=== PATIENT | female | born 1950 | race Caucasian/White ===

== ENCOUNTER 2022-10-16 18:59 | Inpatient (IN) | payer OTHER ==
[~2022-10-16] VITALS: Ht 157.5 cm; Wt 84.0 kg
[2022-10-16 20:23] LABS: Basophils # (auto) 0 10 ^3/uL (0-0.2); Basophils % (auto) 0.5 % (0.0-2.0); Eosinophils # (auto) 0.2 10 ^3/uL (0-0.8); Eosinophils % (auto) 3.2 % (0.0-7.0); Hematocrit 37.3 % (36.0-46.0); Hemoglobin 12.2 g/dL (12.2-16.2); Lymphocytes # (auto) 1.6 10 ^3/uL (0.4-5.4); Lymphocytes % (auto) 25.2 % (10.0-50.0); Mean Corpuscular Hemoglobin 29.6 pg (28.0-32.0); Mean Corpuscular Hgb Conc. 32.8 g/dL (32.0-36.0); Mean Corpuscular Volume 90.2 fL (80.0-100.0); Monocytes # (auto) 0.3 10 ^3/uL (0-1.3); Monocytes % (auto) 5.4 % (0.0-12.0); Neutrophils # (auto) 4.2 10 ^3/uL (1.6-8.6); Neutrophils % (auto) 65.7 % (37.0-80.0); Red Blood Cells 4.14 10^6/uL (4.0-5.20); Red Cell Distribution Width 13.7 % (11.8-14.3); White Blood Cell 6.4 10^3/uL (4.4-10.8)
[2022-10-16 20:28] LABS: INR 0.95 (0.9-1.15); Partial Thromboplastin Time 27.1 sec (24.6-33.4)
[2022-10-16 20:47] LABS: Albumin 3.4 g/dL (3.4-5.0); BUN/Creatinine Ratio 21.9; Bilirubin, Total 0.4 mg/dL (0.2-1.0); Calcium 9.1 mg/dL (8.5-10.1); Potassium 3.5 mmol/L (3.5-5.1); Total Protein 6.9 g/dL (6.4-8.2)
[2022-10-17] MEDS ORDERED: MORPHINE SULFATE 4 MG/ML SYR/VIAL IV ONE (01:00)
[2022-10-17] MEDS ORDERED: ONDANSETRON HCL 4 MG/2 ML VIAL IM ONE (01:00)
[2022-10-17] MEDS ORDERED: ONDANSETRON HCL 4 MG/2 ML VIAL IV ONE (01:30)
[2022-10-17] MEDS ORDERED: D5W/SOD CHLO 0.9% 1,000 ML IV ONE (03:15)
[2022-10-17] MEDS ORDERED: ONDANSETRON HCL 4 MG/2 ML VIAL IV PRN ×3 (03:15→15:30)
[2022-10-17] MEDS ORDERED: BUPIVACAINE W/ EPINEPH 0.25% INJ 50ML MDV ONE ×3 (11:35→16:37)
[2022-10-17] MEDS ORDERED: PHENYLEPHRINE HCL 10 MG/ML VL IV ONE (13:04)
[2022-10-17] MEDS ORDERED: ceFAZolin 1GM/50ML 100 ML IV ONE (14:03)
[2022-10-17] MEDS ORDERED: fentaNYL CITRATE 100 MCG/2 ML VL ONE (14:12)
[2022-10-17] MEDS ORDERED: MORPHINE SULF PF 5 MG/10 ML VIAL ONE (14:12)
[2022-10-17] MEDS ORDERED: MIDAZOLAM HCL 2MG/2ML 2ml VIAL (1mg/ml) ONE (14:12)
[2022-10-17] MEDS ORDERED: DexAMETHasone SOD PHOS 10MG/1ML VIAL INJ ONE (15:13)
[2022-10-17] MEDS ORDERED: POLYETHYLENE GLYCOL 17 GM PWDR PO PRN (15:15)
[2022-10-17] MEDS ORDERED: HYDROmorphone HCL 2 MG TAB PO PRN (15:15)
[2022-10-17] MEDS ORDERED: SENNA 8.6 MG TAB PO PRN (15:15)
[2022-10-17] MEDS ORDERED: NALOXONE HCL 0.4 MG/ML VIAL IV PRN (15:30)
[2022-10-17] MEDS ORDERED: DexAMETHasone SOD PHOS 10MG/1ML VIAL INJ IV PRN (15:30)
[2022-10-17] MEDS ORDERED: HYDROmorphone HCL 2 MG/ML VL/or syr IV PRN (15:30)
[2022-10-17] MEDS ORDERED: LABETALOL HCL 5 MG/ML 4ML SYRINGE IV PRN (15:30)
[2022-10-17] MEDS ORDERED: MIDAZOLAM HCL 2MG/2ML 2ml VIAL (1mg/ml) IV PRN (15:30)
[2022-10-17] MEDS ORDERED: ePHEDrine SULFATE 50 MG/ML AMP IV PRN (15:30)
[2022-10-17] MEDS ORDERED: NALBUPHINE HCL 10 MG/1ml INJECTION SUBCUT ONE (15:30)
[2022-10-17] MEDS ORDERED: KETOROLAC TROMETH 30 MG/ML 1ML VIAL ONE (16:39)
[2022-10-17] MEDS ORDERED: VANCOMYCIN HCL 1000 MG VL ONE (16:41)
[2022-10-17] MEDS ORDERED: PROPOFOL 10 MG/ML 20 ML IV ONE (16:41)
[2022-10-17 19:21] VITALS: BP 136/66
[2022-10-17 19:48] LABS: Basophils # (auto) 0 10 ^3/uL (0-0.2); Basophils % (auto) 0.1 % (0.0-2.0); Eosinophils # (auto) 0 10 ^3/uL (0-0.8); Eosinophils % (auto) 0.1 % (0.0-7.0); Hematocrit 27.5 % (36.0-46.0); Hemoglobin 9.1 g/dL (12.2-16.2); Lymphocytes # (auto) 0.5 10 ^3/uL (0.4-5.4); Lymphocytes % (auto) 4.5 % (10.0-50.0); Mean Corpuscular Hemoglobin 30.3 pg (28.0-32.0); Mean Corpuscular Hgb Conc. 33.2 g/dL (32.0-36.0); Mean Corpuscular Volume 91.1 fL (80.0-100.0); Monocytes # (auto) 0.4 10 ^3/uL (0-1.3); Monocytes % (auto) 3.5 % (0.0-12.0); Neutrophils # (auto) 10.1 10 ^3/uL (1.6-8.6); Neutrophils % (auto) 91.8 % (37.0-80.0); Nucleated Red Blood Cells % 0.2 %; Red Blood Cells 3.01 10^6/uL (4.0-5.20); Red Cell Distribution Width 13.6 % (11.8-14.3)
[2022-10-17 20:21] VITALS: BP 113/59
[2022-10-17 21:21] VITALS: BP 117/65
[2022-10-17 22:00] VITALS: BP 117/65
[2022-10-17] MEDS: SENNA 8.6 MG TAB PO SCH (22:04)
[2022-10-17] MEDS: ACETAMINOPHEN 500 MG TAB PO SCH (22:04)
[2022-10-17 22:21] VITALS: BP 110/62
[2022-10-17] MEDS ORDERED: MONT-8 PO (23:10)
[2022-10-17] MEDS ORDERED: FLUT100I INH (23:10)
[2022-10-17] MEDS ORDERED: GABA300C10 PO (23:10)
[2022-10-17 23:21] VITALS: BP 114/60
[2022-10-17] MEDS: ceFAZolin 2 GM in D5W 5% 100 ML IV SCH (23:21)
[2022-10-18] VITALS (19 sets, daily range): BP systolic 89–148; BP diastolic 43–89
[2022-10-18] MEDS ORDERED: ceFAZolin 1GM/50ML 100 ML IV ONE (06:01)
[2022-10-18] MEDS: ceFAZolin 2 GM in D5W 5% 100 ML IV SCH (06:03)
[2022-10-18] MEDS: ACETAMINOPHEN 500 MG TAB PO SCH ×3 (06:11→22:00)
[2022-10-18 07:16] LABS: Basophils # (auto) 0 10 ^3/uL (0-0.2); Eosinophils # (auto) 0 10 ^3/uL (0-0.8); Lymphocytes # (auto) 0.9 10 ^3/uL (0.4-5.4); Monocytes # (auto) 0.5 10 ^3/uL (0-1.3); White Blood Cell 6.8 10^3/uL (4.4-10.8)
[2022-10-18 07:18] LABS: Basophils % (auto) 0.1 % (0.0-2.0); Eosinophils % (auto) 0.1 % (0.0-7.0); Hematocrit 22.8 % (36.0-46.0); Hemoglobin 7.7 g/dL (12.2-16.2); Lymphocytes % (auto) 13.2 % (10.0-50.0); Mean Corpuscular Hemoglobin 30.4 pg (28.0-32.0); Mean Corpuscular Hgb Conc. 33.6 g/dL (32.0-36.0); Mean Corpuscular Volume 90.4 fL (80.0-100.0); Monocytes % (auto) 7.2 % (0.0-12.0); Neutrophils # (auto) 5.4 10 ^3/uL (1.6-8.6); Neutrophils % (auto) 79.4 % (37.0-80.0); Red Blood Cells 2.52 10^6/uL (4.0-5.20); Red Cell Distribution Width 13.5 % (11.8-14.3)
[2022-10-18 07:19] LABS: Albumin 2.3 g/dL (3.4-5.0); Calcium 7.8 mg/dL (8.5-10.1)
[2022-10-18 07:27] LABS: BUN/Creatinine Ratio 20.8; Bilirubin, Total 1.2 mg/dL (0.2-1.0)
[2022-10-18] MEDS: ENOXAPARIN SOD 40 MG/0.4 ML SYRINGE SC SCH (10:09)
[2022-10-18] MEDS: CHOLECALCIFEROL (VITD3) 1,000UNIT=25mCg TAB PO SCH (10:10)
[2022-10-18] MEDS: POLYETHYLENE GLYCOL 17 GM PWDR PO SCH (10:11)
[2022-10-18] MEDS: HYDROmorphone HCL 2 MG/ML VL/or syr IV PRN ×2 (14:28→18:29)
[2022-10-18] MEDS: HYDROcodone-ACET 5/325MG TAB PO PRN (20:02)
[2022-10-18] MEDS: SENNA 8.6 MG TAB PO SCH (21:59)
[2022-10-18] MEDS: MORPHINE SULFATE INJ 2 MG/ml SYRG IV PRN (22:08)
[2022-10-19] MEDS: HYDROmorphone HCL 2 MG/ML VL/or syr IV PRN (01:28)
[2022-10-19 05:00] VITALS: BP 146/60
[2022-10-19 06:13] LABS: Basophils # (auto) 0 10 ^3/uL (0-0.2); Basophils % (auto) 0.3 % (0.0-2.0); Eosinophils # (auto) 0 10 ^3/uL (0-0.8); Eosinophils % (auto) 0.2 % (0.0-7.0); Lymphocytes # (auto) 0.4 10 ^3/uL (0.4-5.4); Monocytes # (auto) 0.2 10 ^3/uL (0-1.3); Monocytes % (auto) 6.7 % (0.0-12.0); Neutrophils # (auto) 2.6 10 ^3/uL (1.6-8.6); White Blood Cell 3.2 10^3/uL (4.4-10.8)
[2022-10-19 06:16] LABS: Hematocrit 21.1 % (36.0-46.0); Lymphocytes % (auto) 11.6 % (10.0-50.0); Mean Corpuscular Hemoglobin 30.1 pg (28.0-32.0); Mean Corpuscular Hgb Conc. 33.2 g/dL (32.0-36.0); Mean Corpuscular Volume 90.5 fL (80.0-100.0); Neutrophils % (auto) 81.2 % (37.0-80.0); Nucleated Red Blood Cells % 0.1 %; Red Blood Cells 2.33 10^6/uL (4.0-5.20); Red Cell Distribution Width 13.5 % (11.8-14.3)
[2022-10-19 06:29] LABS: Albumin 2.3 g/dL (3.4-5.0); Calcium 7.7 mg/dL (8.5-10.1); Potassium 3.6 mmol/L (3.5-5.1)
[2022-10-19 06:34] LABS: BUN/Creatinine Ratio 23.9; Bilirubin, Total 0.5 mg/dL (0.2-1.0); Total Protein 4.7 g/dL (6.4-8.2)
[2022-10-19] MEDS: ACETAMINOPHEN 500 MG TAB PO SCH ×3 (06:41→21:23)
[2022-10-19 09:00] VITALS: BP 145/65
[2022-10-19] MEDS: CHOLECALCIFEROL (VITD3) 1,000UNIT=25mCg TAB PO SCH (10:00)
[2022-10-19] MEDS: POLYETHYLENE GLYCOL 17 GM PWDR PO SCH (10:00)
[2022-10-19] MEDS: MORPHINE SULFATE INJ 2 MG/ml SYRG IV PRN (10:01)
[2022-10-19] MEDS: ENOXAPARIN SOD 40 MG/0.4 ML SYRINGE SC SCH (12:00)
[2022-10-19 13:00] VITALS: BP 124/57
[2022-10-19] MEDS: HYDROmorphone HCL 2 MG TAB PO PRN (13:33)
[2022-10-19] MEDS ORDERED: AZITHROMYCIN 250 MG TAB PO ONE (15:15)
[2022-10-19] MEDS ORDERED: AMOXICILLIN/CLAVUL 875 MG TAB PO ONE (15:15)
[2022-10-19] MEDS ORDERED: AMOXICILLIN TRIHYDRATE 250 MG CAP PO ONE (15:15)
[2022-10-19 16:41] VITALS: BP 128/55
[2022-10-19] MEDS: SENNA 8.6 MG TAB PO SCH (21:22)
[2022-10-19] MEDS: AMOXICILLIN/CLAVUL 875 MG TAB PO SCH (21:22)
[2022-10-19 22:00] VITALS: BP 140/60
[2022-10-19] MEDS ORDERED: AMOXICILLIN TRIHYDRATE 250 MG CAP PO SCH (22:00)
[2022-10-20] VITALS (9 sets, daily range): BP systolic 119–145; BP diastolic 57–70
[2022-10-20] MEDS: HYDROmorphone HCL 2 MG TAB PO PRN (02:53)
[2022-10-20] MEDS: ACETAMINOPHEN 500 MG TAB PO SCH ×3 (05:38→21:46)
[2022-10-20 06:42] LABS: Basophils # (auto) 0 10 ^3/uL (0-0.2); Eosinophils # (auto) 0.1 10 ^3/uL (0-0.8); Lymphocytes # (auto) 0.7 10 ^3/uL (0.4-5.4); Monocytes # (auto) 0.2 10 ^3/uL (0-1.3); Nucleated Red Blood Cells % 0.1 %; White Blood Cell 3.9 10^3/uL (4.4-10.8)
[2022-10-20 06:45] LABS: Basophils % (auto) 0.4 % (0.0-2.0); Eosinophils % (auto) 3.1 % (0.0-7.0); Hematocrit 19.3 % (36.0-46.0); Lymphocytes % (auto) 18.2 % (10.0-50.0); Mean Corpuscular Hemoglobin 30.3 pg (28.0-32.0); Mean Corpuscular Hgb Conc. 33.4 g/dL (32.0-36.0); Mean Corpuscular Volume 90.6 fL (80.0-100.0); Monocytes % (auto) 5.2 % (0.0-12.0); Neutrophils # (auto) 2.9 10 ^3/uL (1.6-8.6); Neutrophils % (auto) 73.1 % (37.0-80.0); Red Blood Cells 2.13 10^6/uL (4.0-5.20); Red Cell Distribution Width 13.7 % (11.8-14.3)
[2022-10-20 07:00] LABS: Hemoglobin 6.5 g/dL (12.2-16.2)
[2022-10-20 07:01] LABS: BUN/Creatinine Ratio 30.3; Calcium 7.9 mg/dL (8.5-10.1); Potassium 3.3 mmol/L (3.5-5.1)
[2022-10-20 07:03] LABS: Bilirubin, Total 0.4 mg/dL (0.2-1.0); Total Protein 4.9 g/dL (6.4-8.2)
[2022-10-20] MEDS: POLYETHYLENE GLYCOL 17 GM PWDR PO SCH (10:00)
[2022-10-20] MEDS: ENOXAPARIN SOD 40 MG/0.4 ML SYRINGE SC SCH (10:12)
[2022-10-20] MEDS: AZITHROMYCIN 250 MG TAB PO SCH (10:13)
[2022-10-20] MEDS: CHOLECALCIFEROL (VITD3) 1,000UNIT=25mCg TAB PO SCH (10:13)
[2022-10-20] MEDS: AMOXICILLIN/CLAVUL 875 MG TAB PO SCH ×2 (12:30→22:17)
[2022-10-20] MEDS: SENNA 8.6 MG TAB PO SCH (21:44)
[2022-10-21 05:00] VITALS: BP 146/73
[2022-10-21] MEDS: ACETAMINOPHEN 500 MG TAB PO SCH ×3 (05:41→21:31)
[2022-10-21 06:02] LABS: Basophils # (auto) 0 10 ^3/uL (0-0.2); Basophils % (auto) 0.3 % (0.0-2.0); Eosinophils # (auto) 0.2 10 ^3/uL (0-0.8); Eosinophils % (auto) 3.5 % (0.0-7.0); Hematocrit 25.7 % (36.0-46.0); Hemoglobin 8.6 g/dL (12.2-16.2); Lymphocytes # (auto) 1.1 10 ^3/uL (0.4-5.4); Mean Corpuscular Hemoglobin 29.6 pg (28.0-32.0); Mean Corpuscular Hgb Conc. 33.4 g/dL (32.0-36.0); Mean Corpuscular Volume 88.6 fL (80.0-100.0); Monocytes # (auto) 0.4 10 ^3/uL (0-1.3); Monocytes % (auto) 7.6 % (0.0-12.0); Neutrophils # (auto) 3.4 10 ^3/uL (1.6-8.6); Neutrophils % (auto) 66.6 % (37.0-80.0); Nucleated Red Blood Cells % 0.1 %; Red Cell Distribution Width 14.1 % (11.8-14.3); White Blood Cell 5.1 10^3/uL (4.4-10.8)
[2022-10-21 06:24] LABS: Albumin 2.2 g/dL (3.4-5.0); Potassium 3.3 mmol/L (3.5-5.1)
[2022-10-21 06:27] LABS: BUN/Creatinine Ratio 25.7
[2022-10-21 06:30] LABS: Bilirubin, Total 0.7 mg/dL (0.2-1.0); Total Protein 5.1 g/dL (6.4-8.2)
[2022-10-21 08:27] VITALS: BP 153/77
[2022-10-21] MEDS ORDERED: POTASSIUM EFFERVESENT TAB 25 MEQ PO ONE (09:45)
[2022-10-21] MEDS: POLYETHYLENE GLYCOL 17 GM PWDR PO SCH (10:00)
[2022-10-21] MEDS: CHOLECALCIFEROL (VITD3) 1,000UNIT=25mCg TAB PO SCH (10:28)
[2022-10-21] MEDS: AZITHROMYCIN 250 MG TAB PO SCH (10:29)
[2022-10-21] MEDS: AMOXICILLIN/CLAVUL 875 MG TAB PO SCH ×2 (10:29→21:31)
[2022-10-21] MEDS: ENOXAPARIN SOD 40 MG/0.4 ML SYRINGE SC SCH (10:30)
[2022-10-21 12:22] VITALS: BP 147/74
[2022-10-21 16:26] VITALS: BP 136/58
[2022-10-21] MEDS: SENNA 8.6 MG TAB PO SCH (21:31)
[2022-10-21 22:00] VITALS: BP 156/68
[2022-10-22] MEDS: MAALOX PLUS or MAALOX 30 ML PO PRN (00:19)
[2022-10-22] MEDS: HYDROmorphone HCL 2 MG TAB PO PRN (03:25)
[2022-10-22 05:00] VITALS: BP 137/74
[2022-10-22] MEDS: ACETAMINOPHEN 500 MG TAB PO SCH ×3 (06:00→21:00)
[2022-10-22 06:22] LABS: Basophils # (auto) 0 10 ^3/uL (0-0.2); Basophils % (auto) 0.5 % (0.0-2.0); Eosinophils # (auto) 0.1 10 ^3/uL (0-0.8); Eosinophils % (auto) 2.4 % (0.0-7.0); Hematocrit 25.9 % (36.0-46.0); Hemoglobin 8.9 g/dL (12.2-16.2); Lymphocytes # (auto) 1.4 10 ^3/uL (0.4-5.4); Lymphocytes % (auto) 27.2 % (10.0-50.0); Mean Corpuscular Hemoglobin 30.4 pg (28.0-32.0); Mean Corpuscular Hgb Conc. 34.5 g/dL (32.0-36.0); Mean Corpuscular Volume 88.1 fL (80.0-100.0); Monocytes # (auto) 0.5 10 ^3/uL (0-1.3); Monocytes % (auto) 9.5 % (0.0-12.0); Neutrophils # (auto) 3.2 10 ^3/uL (1.6-8.6); Neutrophils % (auto) 60.4 % (37.0-80.0); Nucleated Red Blood Cells % 0.2 %; Red Blood Cells 2.94 10^6/uL (4.0-5.20); Red Cell Distribution Width 14.2 % (11.8-14.3); White Blood Cell 5.3 10^3/uL (4.4-10.8)
[2022-10-22 06:31] LABS: Albumin 2.4 g/dL (3.4-5.0); Calcium 8.3 mg/dL (8.5-10.1); Potassium 3.3 mmol/L (3.5-5.1)
[2022-10-22 06:36] LABS: BUN/Creatinine Ratio 17.6; Total Protein 5.4 g/dL (6.4-8.2)
[2022-10-22 09:00] VITALS: BP 157/70
[2022-10-22] MEDS: POLYETHYLENE GLYCOL 17 GM PWDR PO SCH (10:00)
[2022-10-22] MEDS: AZITHROMYCIN 250 MG TAB PO SCH (10:54)
[2022-10-22] MEDS: CHOLECALCIFEROL (VITD3) 1,000UNIT=25mCg TAB PO SCH (10:54)
[2022-10-22] MEDS: AMOXICILLIN/CLAVUL 875 MG TAB PO SCH ×2 (10:54→21:01)
[2022-10-22] MEDS: ENOXAPARIN SOD 40 MG/0.4 ML SYRINGE SC SCH (11:07)
[2022-10-22 13:00] VITALS: BP 164/85
[2022-10-22 16:59] VITALS: BP 159/91
[2022-10-22] MEDS: SENNA 8.6 MG TAB PO SCH (21:00)
[2022-10-22 21:47] VITALS: BP 147/84
[2022-10-22] MEDS: POTASSIUM CHL 20MEQ/100ML 100 ML IV SCH (23:42)
[2022-10-23] MEDS: POTASSIUM CHL 20MEQ/100ML 100 ML IV SCH (02:16)
[2022-10-23 05:00] VITALS: BP 177/83
[2022-10-23] MEDS: ACETAMINOPHEN 500 MG TAB PO SCH ×3 (05:02→21:02)
[2022-10-23 05:05] VITALS: BP 169/81
[2022-10-23] MEDS ORDERED: hydrALAZINE HCL 20 MG/ML VL IV PRN (06:00)
[2022-10-23] MEDS: MAALOX PLUS or MAALOX 30 ML PO PRN (06:36)
[2022-10-23 08:00] VITALS: BP 138/67
[2022-10-23 09:38] LABS: Hematocrit 28.7 % (36.0-46.0); Hemoglobin 9.5 g/dL (12.2-16.2); Mean Corpuscular Hemoglobin 29.6 pg (28.0-32.0); Mean Corpuscular Hgb Conc. 33.3 g/dL (32.0-36.0); Mean Corpuscular Volume 88.9 fL (80.0-100.0); Red Blood Cells 3.23 10^6/uL (4.0-5.20); Red Cell Distribution Width 14.2 % (11.8-14.3); White Blood Cell 7.2 10^3/uL (4.4-10.8)
[2022-10-23 09:48] LABS: Albumin 2.6 g/dL (3.4-5.0); Calcium 8.3 mg/dL (8.5-10.1); Potassium 3.5 mmol/L (3.5-5.1)
[2022-10-23 09:52] LABS: BUN/Creatinine Ratio 17.5; Bilirubin, Total 0.9 mg/dL (0.2-1.0); Total Protein 5.7 g/dL (6.4-8.2)
[2022-10-23 09:53] LABS: Basophils % (manual) 0 (0.0-2.0); Blast Cells 0; Metamyelocytes % 0; Myelocytes % 0; Promyelocytes % 0; Reactive Lymphocytes 0
[2022-10-23] MEDS: POLYETHYLENE GLYCOL 17 GM PWDR PO SCH (10:00)
[2022-10-23 10:31] LABS: Band Neutrophils % (manual) 1; Eosinophils % (manual) 1 (0-7); Lymphocytes % (manual) 28 (10.0-50.0); Monocytes % (manual) 7 (0-12)
[2022-10-23] MEDS: AZITHROMYCIN 250 MG TAB PO SCH (10:42)
[2022-10-23] MEDS: ENOXAPARIN SOD 40 MG/0.4 ML SYRINGE SC SCH (10:43)
[2022-10-23] MEDS: CHOLECALCIFEROL (VITD3) 1,000UNIT=25mCg TAB PO SCH (10:44)
[2022-10-23] MEDS: AMOXICILLIN/CLAVUL 875 MG TAB PO SCH ×2 (10:44→21:02)
[2022-10-23] MEDS: HYDROcodone-ACET 5/325MG TAB PO PRN (10:47)
[2022-10-23 13:18] VITALS: BP 148/62
[2022-10-23 17:00] VITALS: BP 142/83
[2022-10-23] MEDS ORDERED: ZOLPIDEM TARTRATE 5 MG TAB PO PRN (21:00)
[2022-10-23] MEDS: SENNA 8.6 MG TAB PO SCH (21:02)
[2022-10-23 22:00] VITALS: BP 138/71
[2022-10-24 05:00] VITALS: BP 132/64
[2022-10-24] MEDS: ACETAMINOPHEN 500 MG TAB PO SCH ×3 (05:01→21:04)
[2022-10-24 07:23] LABS: Hematocrit 27.7 % (36.0-46.0); Hemoglobin 9.2 g/dL (12.2-16.2); Mean Corpuscular Hemoglobin 29.5 pg (28.0-32.0); Mean Corpuscular Hgb Conc. 33.1 g/dL (32.0-36.0); Red Blood Cells 3.12 10^6/uL (4.0-5.20); Red Cell Distribution Width 14.2 % (11.8-14.3); White Blood Cell 7.2 10^3/uL (4.4-10.8)
[2022-10-24 07:32] LABS: Potassium 3.6 mmol/L (3.5-5.1)
[2022-10-24 07:40] LABS: Albumin 2.5 g/dL (3.4-5.0); BUN/Creatinine Ratio 27.1; Bilirubin, Total 0.9 mg/dL (0.2-1.0); Calcium 8.5 mg/dL (8.5-10.1); Total Protein 5.9 g/dL (6.4-8.2)
[2022-10-24 08:11] LABS: Band Neutrophils % (manual) 0; Basophils % (manual) 0 (0.0-2.0); Blast Cells 0; Myelocytes % 0; Promyelocytes % 0; Reactive Lymphocytes 0
[2022-10-24 09:00] VITALS: BP 143/73
[2022-10-24] MEDS: AZITHROMYCIN 250 MG TAB PO SCH (09:05)
[2022-10-24] MEDS: AMOXICILLIN/CLAVUL 875 MG TAB PO SCH ×2 (09:05→21:04)
[2022-10-24] MEDS: ENOXAPARIN SOD 40 MG/0.4 ML SYRINGE SC SCH (09:06)
[2022-10-24] MEDS: CHOLECALCIFEROL (VITD3) 1,000UNIT=25mCg TAB PO SCH (09:07)
[2022-10-24] MEDS: POLYETHYLENE GLYCOL 17 GM PWDR PO SCH (09:07)
[2022-10-24] MEDS: HYDROmorphone HCL 2 MG TAB PO PRN (10:23)
[2022-10-24 12:37] VITALS: BP 124/69
[2022-10-24 16:04] LABS: Eosinophils % (manual) 1 (0-7); Lymphocytes % (manual) 25 (10.0-50.0); Metamyelocytes % 2; Monocytes % (manual) 8 (0-12)
[2022-10-24 17:00] VITALS: BP 113/68
[2022-10-24] MEDS: HYDROcodone-ACET 5/325MG TAB PO PRN (20:30)
[2022-10-24] MEDS: SENNA 8.6 MG TAB PO SCH (21:04)
[2022-10-24 22:00] VITALS: BP 149/63
[2022-10-25 05:00] VITALS: BP 105/57
[2022-10-25] MEDS: ACETAMINOPHEN 500 MG TAB PO SCH ×3 (05:01→22:14)
[2022-10-25 08:44] VITALS: BP 123/68
[2022-10-25] MEDS: ENOXAPARIN SOD 40 MG/0.4 ML SYRINGE SC SCH (09:58)
[2022-10-25] MEDS: CHOLECALCIFEROL (VITD3) 1,000UNIT=25mCg TAB PO SCH (09:58)
[2022-10-25] MEDS: AZITHROMYCIN 250 MG TAB PO SCH (09:58)
[2022-10-25] MEDS: AMOXICILLIN/CLAVUL 875 MG TAB PO SCH ×2 (09:58→22:00)
[2022-10-25] MEDS: POLYETHYLENE GLYCOL 17 GM PWDR PO SCH (09:58)
[2022-10-25 12:45] VITALS: BP 126/65
[2022-10-25] MEDS: HYDROmorphone HCL 2 MG TAB PO PRN (13:26)
[2022-10-25 16:52] VITALS: BP 104/54
[2022-10-25] MEDS: SENNA 8.6 MG TAB PO SCH (22:00)
[2022-10-26] VITALS: BP 99/55
[2022-10-26 05:43] VITALS: BP 108/55
[2022-10-26] MEDS: ACETAMINOPHEN 500 MG TAB PO SCH (06:00)
[2022-10-26 09:00] VITALS: BP 125/57
[2022-10-26] MEDS: POLYETHYLENE GLYCOL 17 GM PWDR PO SCH (10:00)
[2022-10-26] MEDS: HYDROcodone-ACET 5/325MG TAB PO PRN (10:06)
[2022-10-26] MEDS: AZITHROMYCIN 250 MG TAB PO SCH (10:06)
[2022-10-26] MEDS: CHOLECALCIFEROL (VITD3) 1,000UNIT=25mCg TAB PO SCH (10:06)
[2022-10-26] MEDS: ENOXAPARIN SOD 40 MG/0.4 ML SYRINGE SC SCH (11:51)
[2022-10-26] MEDS: AMOXICILLIN/CLAVUL 875 MG TAB PO SCH (11:51)
[2022-10-26 12:43] VITALS: BP 169/81
[2022-10-26 13:00] VITALS: BP 110/45
== END 2022-10-26 13:42 | DRG 480 ==
LOC: EDBD 18:59 → ER 19:01 → OVERFLOW 10-17 03:15 → WEST WING 10-17 18:00 → TELE-WESTW 10-17 19:12
PROVIDERS: ADMIT Nurse Practitioner; ATTEND Student in an Organized Health Care Education/Training Program
PROC: 0QUC0KZ Supplement Left Lower Femur with Nonautologous Tissue Substitute, Open Approach (ICD-10-PCS; 2022-10-17)
PROC: BQ14ZZZ Fluoroscopy of Left Femur (ICD-10-PCS; 2022-10-17)
PROC: 0QSC04Z Reposition Left Lower Femur with Internal Fixation Device, Open Approach (ICD-10-PCS; principal; 2022-10-17 14:24)
PROC: 30233N1 Transfusion of Nonautologous Red Blood Cells into Peripheral Vein, Percutaneous Approach (ICD-10-PCS; 2022-10-20)
DX: M97.12XA Periprosthetic fracture around internal prosthetic left knee joint, initial encounter (principal); J18.9 Pneumonia, unspecified organism; M81.0 Age-related osteoporosis without current pathological fracture; D50.0 Iron deficiency anemia secondary to blood loss (chronic); E55.9 Vitamin D deficiency, unspecified; W01.0XXA Fall on same level from slipping, tripping and stumbling without subsequent striking against object, initial encounter; R74.8 Abnormal levels of other serum enzymes; J44.9 Chronic obstructive pulmonary disease, unspecified; Z20.822 Contact with and (suspected) exposure to COVID-19; F17.210 Nicotine dependence, cigarettes, uncomplicated; Z82.0 Family history of epilepsy and other diseases of the nervous system; Z91.81 History of falling; Y93.89 Activity, other specified; Y92.098 Other place in other non-institutional residence as the place of occurrence of the external cause; Y99.8 Other external cause status
CPT/HCPCS: 36415; 71045; 73502; 73560; 73700; 76000; 80053; 82306; 82962; 83036; 85007; 85025; 85027; 85610; 85730; 86850; 86900; 86901; 86920; 87426; 87804; 93005; 93306; 96361; 96374; 96375; 97110; 97116; 97163; 97530; G0378; J0690; J1100; J1885; J2250; J2405; J2704; J3480; J7060

== ENCOUNTER 2023-02-09 08:07 | Emergency (ER) | payer OTHER ==
[~2023-02-09] VITALS: Ht 157.5 cm; Wt 85.0 kg
[~2023-02-09 08:07] MED LIST: FLUT100I INH; GABA300C10 PO; MONT-8 PO
[2023-02-09] MEDS ORDERED: ACETAMINOPHEN 325 MG TAB PO ONE (11:00)
[2023-02-09] MEDS ORDERED: LIDOCAINE 1% HCL (LOCAL ANESTH.) INJ 20ML MDV IJ ONE (12:00)
[2023-02-09] MEDS ORDERED: TETANUS-DIPTH-ACEL PERTUSSIS 0.5ML SYR Tdap IM ONE (12:00)
[2023-02-09 16:23] VITALS: BP 103/61
== END 2023-02-09 16:24 | disposition home or self-care (01) ==
LOC: EDUNIT# 08:07 → EDBD 08:07 → ER 08:07
DX: S01.01XA Laceration without foreign body of scalp, initial encounter (principal); J44.9 Chronic obstructive pulmonary disease, unspecified; M25.552 Pain in left hip; F17.210 Nicotine dependence, cigarettes, uncomplicated; F12.10 Cannabis abuse, uncomplicated; M54.2 Cervicalgia; W18.09XA Striking against other object with subsequent fall, initial encounter; Y93.89 Activity, other specified; Y92.89 Other specified places as the place of occurrence of the external cause; Y99.8 Other external cause status
CPT/HCPCS: 12001; 70450; 72125; 72170; 73552; 73564; 90471; 90715; 99284; J2001

== ENCOUNTER → 2023-02-21 18:50 | Emergency (ER) | payer OTHER | END | disposition left against medical advice (07) | LOC: ER 18:50 | DX: Z48.01 Encounter for change or removal of surgical wound dressing (principal); Z53.21 Procedure and treatment not carried out due to patient leaving prior to being seen by health care provider ==